=== PATIENT | male | born 1965 | race Two or more races ===

== ENCOUNTER 2018-08-03 07:35 | Emergency (ER) | payer SELFPAY ==
[2018-08-03] MEDS ORDERED: TOPICAL LIDOCAINE W/ EPI 5 ML TOP ONE (07:40)
--- NOTE | 2018-08-03 07:54 | Emergency Department Record ---
History of Present Illness - General Chief Complaint: Laceration(s) Stated Complaint: LACERATION TO FACE Time Seen by Provider: 08/03/18 07:40 Source: Patient Mode of Arrival: Ambulatory Limitations: No limitations - History of Present Illness Initial Commments: 53 yo male presents with an injury to the head/face. He states he was walking down some steps and fell. He was carrying boxes a the dime. No LOC. He has a laceration to the left cheek. No neck pain. No other pain or injuries. No vision changes. he is unsure of when his last tetanus vaccination was but thinks it was about 5 years. -: Minutes(s) (20) Location: Face Place: Home Context: Accidental Associated Symptoms: None - Mark Coma Scale Eye Response: (4) Open spontaneously Motor Response: (6) Obeys commands Verbal Response: (5) Oriented Mark Total: 15 - Related Data Home Medications Medication Instructions Recorded Confirmed Last Taken No Home Med [NO HOME MEDS] 08/03/18 08/03/18 Unknown Allergies Allergy/AdvReac Type Severity Reaction Status Date / Time No Known Drug Allergies Allergy Verified 08/03/18 07:42 Review of Systems Constitutional: Denies: Chills, Fever, Weakness Eyes: Denies: Eye discharge, Eye pain, Photophobia, Vision change ENT: Denies: Congestion, Throat pain Respiratory: Denies: Cough Cardiovascular: Denies: Chest pain, Syncope Endocrine: Denies: Fatigue Gastrointestinal: Denies: Abdominal pain, Diarrhea, Nausea, Vomiting Genitourinary: Denies: Dysuria, Frequency, Hematuria Musculoskeletal: Denies: Arthralgia, Back pain, Myalgia Skin: Reports: Other (Laceration). Denies: Bruising, Rash Neurological: Denies: Headache, Numbness, Vertigo, Weakness Psychiatric: Denies: Anxiety Hematological/Lymphatic: Denies: Easy bleeding, Easy bruising Physical Exam - General General Appearance: Alert, Oriented x3, Cooperative, No acute distress Limitations: No limitations - Head Head exam: negative: Atraumatic, Normal inspection Head exam detail: Abrasion, Laceration Image of Face/Head: 1 - contusion 2 - 2cm laceration 3 - 1cm laceration - Eye Eye exam: Normal appearance, PERRL, EOMI, Periorbital swelling, Periorbital tenderness. negative: Conjunctival injection, Nystagmus - ENT ENT exam: Normal exam, Mucous membranes moist Ear exam: Normal external inspection Nasal Exam: Normal inspection Mouth exam: Normal external inspection Teeth exam: Normal inspection Throat exam: Normal inspection - Neck Neck exam: Normal inspection - Respiratory Respiratory exam: Normal lung sounds bilaterally. negative: Respiratory distress - Cardiovascular Cardiovascular Exam: Regular rate, Normal rhythm, Normal heart sounds - GI/Abdominal GI/Abdominal exam: Soft. negative: Distended, Guarding, Rebound, Rigid, Tenderness - Rectal Rectal exam: Deferred - exam: Deferred - Extremities Extremities exam: Normal inspection, Full ROM, Normal capillary refill. negative: Calf tenderness, Pedal edema, Tenderness - Back Back exam: Reports: Normal inspection, Full ROM. Denies: Muscle spasm, Rash noted, Tenderness - Neurological Neurological exam: Alert, CN II-XII intact, Normal gait, Oriented X3, Reflexes normal. negative: Motor sensory deficit - Psychiatric Psychiatric exam: Normal affect, Normal mood. negative: Agitated, Anxious - Skin Type of lesion: Laceration Course - Reevaluation(s) Reevaluation #1: 08/03/18 07:55 Laceration #1 2 cm laceration of the left cheek Wound was cleaned and prepped in sterile fashion, no residual FB identified on examination. The wound was copiously irrigated with NS Wound was anesthetized with 2 mL of 1% Lidocaine with epinephrine The laceration was repaired with 6-0 sutures in interrupted fashion. 1.5cm laceration of the left cheek Wound was cleaned and prepped in sterile fashion, no residual FB identified on examination. The wound was copiously irrigated with NS Wound was anesthetized with 1 mL of 1% Lidocaine with epinephrine The laceration was repaired with 6-0 sutures in interrupted fashion. Patient tolerated the procedure well without complications. We discussed home care, reasons for immediate return if any concerns, and suture removal in 5 days 08/03/[address] was reviewed and was negative for acute IC injury or fractures. Disposition Disposition: Discharge Clinical Impression: Laceration Facial contusion Qualifiers: Encounter type: initial encounter Qualified Code(s): S00.83XA - Contusion of other part of head, initial encounter Disposition: Home, Self-Care Condition: (1) Good Instructions: Laceration (ED) Additional Instructions: Return on Tuesday for suture removal Return to the ER for a recheck if worse, any new concerns, redness, pus, headache, dizziness or questions Forms: Patient Portal Access Time of Disposition: 08:25 Quality - Quality Measures Quality Measures: N/A, Blunt Head Trauma (>2yr) - Mark Coma Scale Mark Coma Scale: [place] Coma Scale Eye Response: (4) Open spontaneously Motor Response: (6) Obeys commands Verbal Response: (5) Oriented [place] Total: 15 - Blunt Head Trauma - Adult Quality Measure: Measure #415: Utilization of CT for Minor Blunt Head Trauma ICD10 Codes Entered: Yes Was CT ordered: Yes Does Patient Have Any of the Following: No Exclusions Patient Presented Within 24 Hours of Injury: Yes Mark Score: [address] for Minor Blunt Head Trauma: < CT Done, Appropriate Indication > [G9529] Additional Inclusion Criteria: Within 24hrs (AND) GCS of 15 (AND) CT ordered. [G9530] Indications For CT: Dangerous Mechanism of Injury - Blood Pressure Screening Does Patient Have Any of the Following: No Blood Pressure Classification: Hypertensive Reading Systolic Measurement: 144 Diastolic Measurement: 105 Screening for High Blood Pressure: < Pre-Hypertensive BP, F/U Documented > [G8950] Pre-Hypertensive Follow-up Interventions: Referral to alternative/primary care provider.
--- NOTE | 2018-08-04 08:41 | CT SCAN REPORT ---
EXAM: CT OF THE BRAIN WITHOUT CONTRAST HISTORY: FALL DOWN STAIRS WITH TRAUMA TO LEFT PERIORBITAL REGION. TECHNIQUE: Routine noncontrast CT examination of the brain was obtained. Comparison: None. FINDINGS: The ventricles and subarachnoid spaces are normal in size. No area of abnormally increased or decreased attenuation is noted throughout the brain substance. No abnormal extraaxial fluid collection nor skull fracture is seen. There is mild mucosal thickening within the left maxillary sinus and a small retention cyst arises from the floor of the right maxillary sinus. A tiny retention cyst is suggested within the left lateral aspect of the dominant left sphenoid sinus. There is a hypoplastic right sphenoid sinus. The ocular globes as visualized are intact. The retrobulbar fat is clear. The optic nerves and extraocular muscles are symmetric and normal in appearance. There is soft tissue swelling in the lateral left periorbital region with a tiny amount of subcutaneous gas consistent with history of contusion with laceration. IMPRESSION: 1. NO INTRACRANIAL ABNORMALITY NOR SKULL FRACTURE. 2. LATERAL LEFT PERIORBITAL SOFT TISSUE SWELLING WITH A TINY AMOUNT OF SUBCUTANEOUS GAS CONSISTENT WITH CONTUSION AND LACERATION. JOB NUMBER: [id number] [facility]
== END 2018-08-03 08:48 | disposition home or self-care (01) ==
LOC: ER 07:35
DX: S01.412A Laceration without foreign body of left cheek and temporomandibular area, initial encounter (principal); S00.83XA Contusion of other part of head, initial encounter; W10.9XXA Fall (on) (from) unspecified stairs and steps, initial encounter; Y92.009 Unspecified place in unspecified non-institutional (private) residence as the place of occurrence of the external cause
CPT/HCPCS: 12013; 70450; 99283; 99284

== ENCOUNTER 2018-08-09 10:07 | Emergency (ER) | payer SELFPAY ==
--- NOTE | 2018-08-09 10:17 | Emergency Department Record ---
History of Present Illness - General Chief Complaint: Suture removal Stated Complaint: SUTURE REMOVED Time Seen by Provider: 08/09/18 10:14 Source: Patient, RN notes reviewed - History of Present Illness Initial Comments: healing well and no signs of infection and no headaches or visual problems , repaired one week ago Complaint: Suture/staple removal - Related Data Allergies Allergy/AdvReac Type Severity Reaction Status Date / Time No Known Drug Allergies Allergy Verified 08/09/18 10:13 Review of Systems Reviewed: No additional complaints except as noted below Constitutional: Reports: As per HPI. Denies: Chills, Fever, Malaise, Night sweats, Weakness, Weight change Eyes: Reports: As per HPI. Denies: Eye discharge, Eye pain, Photophobia, Vision change ENT: Reports: As per HPI. Denies: Congestion, Dental pain, Ear pain, Epistaxis, Hearing loss, Throat pain Respiratory: Reports: As per HPI. Denies: Cough, Dyspnea, Hemoptysis, Stridor, Wheezes Cardiovascular: Reports: As per HPI. Denies: Arrhythmia, Chest pain, Dyspnea on exertion, Edema, Murmurs, Orthopnea, Palpitations, Paroxysmal nocturnal dyspnea, Rheumatic Fever, Syncope Endocrine: Reports: As per HPI. Denies: Fatigue, Heat or cold intolerance, Polydipsia, Polyuria Gastrointestinal: Reports: As per HPI. Denies: Abdominal pain, Constipation, Diarrhea, Hematemesis, Hematochezia, Melena, Nausea, Vomiting Genitourinary: Reports: As per HPI. Denies: Dysuria, Frequency, Hematuria, Incontinence, Retention, Testicular pain, Testicular mass, Urgency Musculoskeletal: Reports: As per HPI. Denies: Arthralgia, Back pain, Gout, Joint swelling, Myalgia, Neck pain Skin: Reports: As per HPI. Denies: Bruising, Change in color, Change in hair/nails, Lesions, Pruritus, Rash Neurological: Reports: As per HPI. Denies: Abnormal gait, Confusion, Headache, Numbness, Paresthesias, Seizure, Tingling, Tremors, Vertigo, Weakness Psychiatric: Reports: As per HPI. Denies: Anxiety, Auditory hallucinations, Depression, Homicidal thoughts, Suicidal thoughts, Visual hallucinations Hematological/Lymphatic: Reports: As per HPI. Denies: Anemia, Blood Clots, Easy bleeding, Easy bruising, Swollen glands Past Medical History - SOCIAL HISTORY Smoking Status: Never smoker Drug Use: None - RESPIRATORY Hx Respiratory Disorders: No - CARDIOVASCULAR Hx Cardio Disorders: No - NEURO Hx Neuro Disorders: No - GI Hx GI Disorders: No - Hx Genitourinary Disorders: No - ENDOCRINE Hx Endocrine Disorders: No - MUSCULOSKELETAL Hx Musculoskeletal Disorders: No - PSYCH Hx Psych Problems: No - HEMATOLOGY/ONCOLOGY Hx Hematology/Oncology Disorders: No Physical Exam - General General Appearance: Alert, Oriented x3, Cooperative, No acute distress - Head Head exam: Normal inspection - Eye Eye exam: Normal appearance, PERRL Pupils: Normal accommodation - ENT ENT exam: Normal exam, Mucous membranes moist, Normal external ear exam, Normal orophraynx, TM's normal bilaterally Ear exam: Normal external inspection. negative: External canal tenderness Nasal Exam: Normal inspection. negative: Discharge, Sinus tenderness Mouth exam: Normal external inspection, Tongue normal Teeth exam: Normal inspection. negative: Dental caries Throat exam: Normal inspection. negative: Tonsillar erythema, Tonsillar exudate - Neck Neck exam: Normal inspection, Full ROM. negative: Tenderness - Respiratory Respiratory exam: Normal lung sounds bilaterally. negative: Respiratory distress - Cardiovascular Cardiovascular Exam: Regular rate, Normal rhythm, Normal heart sounds - GI/Abdominal GI/Abdominal exam: Soft, Normal bowel sounds. negative: Tenderness - Rectal Rectal exam: Deferred - exam: Deferred - Extremities Extremities exam: Normal inspection, Full ROM, Normal capillary refill. negative: Tenderness - Back Back exam: Reports: Normal inspection, Full ROM. Denies: Muscle spasm, Rash noted, Tenderness - Neurological Neurological exam: Alert, Normal gait, Oriented X3, Reflexes normal - Psychiatric Psychiatric exam: Normal affect, Normal mood - Skin Skin exam: Dry, Intact, Normal color, Warm Course sutures removed Disposition Clinical Impression: Visit for suture removal Disposition: Home, Self-Care Condition: (1) Good Instructions: Stitches Removal (ED) Forms: Patient Portal Access Time of Disposition: 10:15 Quality - Quality Measures Quality Measures: N/A - Blood Pressure Screening Does Patient Have Any of the Following: No Blood Pressure Classification: Pre-Hypertensive BP Reading Systolic Measurement: 143 Diastolic Measurement: 88 Screening for High Blood Pressure: < Pre-Hypertensive BP, F/U Documented > [G8950] Pre-Hypertensive Follow-up Interventions: Referral to alternative/primary care provider.
== END 2018-08-09 10:23 | disposition home or self-care (01) ==
LOC: ER 10:07
DX: Z48.02 Encounter for removal of sutures (principal)